=== PATIENT | female | born 2000 | race Hispanic/Latino ===

== ENCOUNTER 2019-02-05 17:28 | Emergency (ER) | payer SELFPAY | END 2019-02-05 19:08 | disposition home or self-care (01) | LOC: ERS 17:28 | DX: S80.211A Abrasion, right knee, initial encounter (principal); W25.XXXA Contact with sharp glass, initial encounter | CPT/HCPCS: 99284 ==

== ENCOUNTER 2020-01-31 09:07 | Outpatient (CLI) | payer MEDICAID, OTHER ==
--- NOTE | 2020-01-31 10:26 | ULT ---
OB ULTRASOUND: HISTORY: anatomy. FINDINGS: A single live intrauterine gestation is seen with measurements corresponding to an estimated gestatio nal age of 20 weeks 4 days and MICAH at 06/15/2020. The estimated weight measures 346 grams or 12 ounces (20% by Hadlock criteria). measurements are as follows: BPD 4.76 cm, 20 weeks 3 days HC 18.17 cm, 20 weeks 5 days AC 15.28 cm, 20 weeks 4 days FL 3.23 cm, 20 weeks 1 day heart rate measures 146 b.p.m. Placenta is posteriorly located without evidence of placenta pr evia. JENNA measures 10.7 cm. Cervical length measures 4.5 cm. A 3-vessel cord, cord insertion, kidneys, bladder, stomach, 4-chamber heart, lateral ventricles , cerebellum, spine, lips/nose, upper and lower extremities are visualized. No definite anomal ies are seen. IMPRESSION: Single live intrauterine of 20 weeks 4 days estimated gestational age and estimated date of delivery at 06/15/2020. POS: LITO
== END 2020-01-31 09:08 | disposition home or self-care (01) ==
LOC: BICULT 09:07
PROVIDERS: ATTEND Family Medicine
DX: O09.92 Supervision of high risk pregnancy, unspecified, second trimester (principal); Z3A.20 20 weeks gestation of pregnancy
CPT/HCPCS: 76805

== ENCOUNTER 2020-06-13 14:23 | Inpatient (IN) | payer MEDICAID, OTHER ==
[2020-06-13] MEDS ORDERED: Lactated Ringer's 1,000 ML IV SCH (14:50)
[2020-06-13] MEDS ORDERED: hydrALAZINE 20 MG/ML VIAL SLOW IVP PRN (14:50)
[2020-06-13] MEDS ORDERED: Ondansetron PF 4 MG/2 ML Vial IVP PRN ×3 (14:50→20:40)
[2020-06-13] MEDS ORDERED: Promethazine HCl 25 MG/ML VIAL IM PRN ×3 (14:50→20:40)
[2020-06-13] MEDS ORDERED: CEFAZOLIN 2 GM in Premix Bag 1 BAG IVPB SCH (15:00)
[2020-06-13 15:04] VITALS: BMI 33.9
[2020-06-13 15:09] LABS: Hemoglobin 10.1 g/dL (12.0-16.0); Mean Corpuscular HGB CONC 31.6 g/dL (32.0-36.0); Mean Corpuscular Hemoglobin 22.4 pg (27.0-31.0); Mean Corpuscular Volume 70.9 fL (78.0-98.0); Mean Platelet Volume 8.4 fL (7.4-10.4); Platelet Count 261 thou/uL (130-400); RBC Distribution Width 24.5 % (11.5-14.5); Red Blood Cell (RBC) Count 4.49 mill/uL (4.20-5.40); White Blood Cell (WBC) Count 7.5 thou/uL (4.8-10.8)
[2020-06-13 15:51] LABS: HBSAg Index 0.16 S/CO (0-0.99); Hep B Surf Ag Non-Reactive S/CO (NonReactive); Syphilis Antibody Nonreactive (Nonreactive); Syphilis Antibody Index 0.04 S/CO (<1.00 Non-Reactive)
[2020-06-13] MEDS ORDERED: Famotidine/PF 20 mg/2ml Vial SLOW IVP SCH (16:30)
[2020-06-13] MEDS ORDERED: Fentanyl 100 MCG/2 ML VIAL ONE (16:49)
[2020-06-13] MEDS ORDERED: EPHEDRINE 25 MG/5 ML SYRINGE ONE (16:50)
[2020-06-13] MEDS ORDERED: Ondansetron PF 4 MG/2 ML Vial ONE (16:50)
[2020-06-13] MEDS ORDERED: PHENYLEPHRINE-NS 100 MCG/ML 10 ML SYRINGE ONE (16:50)
[2020-06-13] MEDS ORDERED: Oxytocin 10 UNITS/ML VIAL ONE (16:50)
[2020-06-13] MEDS ORDERED: Ketorolac Tromethamine 30 MG/ML VIAL ONE (16:51)
[2020-06-13] MEDS ORDERED: Dexamethasone 4 mg/ml Vial ONE (16:51)
[2020-06-13] MEDS ORDERED: Promethazine HCl 25 MG SUPP PR PRN (18:13)
[2020-06-13] MEDS ORDERED: Meperidine HCl/PF 25 MG/ML VIAL SLOW IVP PRN (18:13)
[2020-06-13] MEDS ORDERED: diphenhydrAMINE 50 MG/ML VIAL IVP PRN (18:13)
[2020-06-13] MEDS ORDERED: HYDROmorphone 2 MG/ML VIAL SLOW IVP PRN (18:13)
[2020-06-13] MEDS ORDERED: Naloxone HCl 0.4 mg/ml Vial IVP PRN ×2 (18:13)
[2020-06-13] MEDS ORDERED: L&D-Morphine 4 MG/ML VIAL SLOW IVP PRN (18:13)
[2020-06-13] MEDS ORDERED: Ketorolac Tromethamine 30 MG/ML VIAL IVP PRN (18:13)
[2020-06-13] MEDS ORDERED: Ondansetron HCl/PF 4 MG/2 ML Vial IVP PRN (18:13)
[2020-06-13] MEDS ORDERED: Naloxone HCl 0.4 mg/ml Vial IV PRN (18:13)
[2020-06-13] MEDS ORDERED: Communication Order-Pharmacy FS SCH (18:15)
--- NOTE | 2020-06-13 19:58 | OP ---
DATE OF PROCEDURE: 06/13/2020 RESIDENT SURGEON: Magalie Cali MD PROCEDURE PERFORMED: Repeat low-transverse section with vacuum- assisted extraction. PREOPERATIVE DIAGNOSES: 1. Term intrauterine . 2. Previous . POSTOPERATIVE DIAGNOSES: 1. Term intrauterine , delivered. 2. Previous section. COMPLICATIONS: None. ANESTHESIA: Spinal. QUANTITATIVE BLOOD LOSS: 910 mL SPECIMENS: Cord blood obtained for cord blood analysis. FINDINGS: Grossly normal male with Apgars of 8 and 9. Placenta intact with three-vessel cord noted. DRAINS: Dewey to gravity draining clear urine. INDICATIONS FOR PROCEDURE: A 20-year-old female, G2, P1-0-0-1 at 39.5 weeks' gestation, presents to labor and delivery for a scheduled repeat section. PROCEDURE IN DETAIL: After risks, benefits, and alternatives were explained to the patient, she gave informed consent. Preoperative antibiotics included cefazolin 2 g IV. The patient was taken to the operating room, and spinal anesthesia was initiated. The patient was placed in the supine position with a left tilt; she was prepped and draped in the usual sterile fashion. A Pfannenstiel incision was made with the scalpel. The cut was carried down to the level of the fascia, which was sharply nicked. The fascial cut was extended bilaterally with Blake scissors. The superior and inferior edges of the fascia were elevated with Gabby clamps. The rectus muscles were sharply and bluntly dissected free. The rectus muscles were sharply in the midline, divided digitally, and retracted manually. The peritoneum was entered bluntly and retracted manually. A bladder blade was placed. A low-transverse uterine incision was made with a scalpel. The uterus was entered bluntly in the midline. Clear fluid was seen. The hysterotomy was extended manually. The was noted to be vertex, and there was much difficulty in performing the delivery. A vacuum was applied to the infant's head, and the infant was delivered via vacuum-assisted delivery and fundal pressure. Cord was clamped and cut. [facility] was collected. The placenta was delivered via fundal pressure and cord contraction in a spontaneous manner. The endometrium was curetted with a dry lap. The uterus was externalized. The edges of the hysterotomy were clamped. The hysterotomy was closed with #1 Monocryl suture in a running locking fashion. Following this, hemostasis was noted. The abdomen was irrigated and suctioned free of clots. There were noted to be polypoid adhesions on the posterior aspect of the uterus. Therefore, Jayne was placed in the rectouterine pouch and all along the posterior aspect of uterus. Seprafilm was applied to the anterior portion of the uterus. The uterus was internalized, and hemostasis was again noted. The rectus muscles were repaired bilaterally with 0 Vicryl suture in a running locking fashion. Peritoneum was closed in a running nonlocking fashion with a 3-0 Vicryl suture. The fascia was closed with a 0 PDS suture in a running nonlocking fashion. The subcutaneous space was irrigated. Bleeders were cauterized. Three interrupted subcutaneous sutures using 3-0 plain gut were placed. The skin was approximated with ahsan. A pressure dressing was placed. All counts were correct. The patient tolerated the procedure well and went to the postoperative area for routine recovery. Job ID: [id number] [facility] CENTERLarry
[2020-06-13] MEDS ORDERED: hydrALAZINE 20 MG/ML VIAL SLOW IVP SCH (20:40)
[2020-06-13] MEDS ORDERED: Bisacodyl 10 MG SUPP PR PRN (20:40)
[2020-06-13] MEDS ORDERED: Simethicone Chewable 80 MG TAB PO PRN (20:40)
[2020-06-13] MEDS ORDERED: Lanolin Ointment 7 GM TUBE TOP PRN (20:40)
[2020-06-13] MEDS ORDERED: diphenhydrAMINE 25 MG CAP PO PRN (20:40)
[2020-06-13] MEDS: Ferrous Sulfate 325 MG TAB PO SCH (21:42)
[2020-06-13] MEDS: Docusate Calcium (SURFAK) 240 MG CAP PO SCH (21:42)
[2020-06-14] MEDS: Ketorolac Tromethamine 30 MG/ML VIAL IVP SCH ×3 (00:07→13:49)
[2020-06-14] MEDS ORDERED: Meperidine HCl/PF 25 MG/ML VIAL IM PRN (06:15)
[2020-06-14] MEDS ORDERED: HYDROcodone/Acetaminophen 5/325 mg Tablet PO PRN (06:15)
[2020-06-14] MEDS ORDERED: Adacel (T-DAP) 0.5 ML SYRINGE IM ONE (09:00)
[2020-06-14 09:21] LABS: Hemoglobin 8.1 g/dL (12.0-16.0); Mean Corpuscular HGB CONC 31.2 g/dL (32.0-36.0); Mean Corpuscular Hemoglobin 22.4 pg (27.0-31.0); Mean Corpuscular Volume 71.9 fL (78.0-98.0); White Blood Cell (WBC) Count 11.4 thou/uL (4.8-10.8)
[2020-06-14 09:22] LABS: Platelet Count 225 thou/uL (130-400); RBC Distribution Width 23.8 % (11.5-14.5)
[2020-06-14] MEDS: Docusate Calcium (SURFAK) 240 MG CAP PO SCH ×2 (09:48→22:19)
[2020-06-14] MEDS: Prenatal Vitamin 1 TAB PO SCH (09:48)
[2020-06-14] MEDS: Ferrous Sulfate 325 MG TAB PO SCH ×2 (09:48→22:19)
[2020-06-14] MEDS ORDERED: Sodium Chloride 0.9% 10 ML ONE (09:53)
[2020-06-14] MEDS: Ibuprofen 800 MG TAB PO SCH ×2 (16:31→22:20)
[2020-06-15] MEDS: Ibuprofen 800 MG TAB PO SCH ×3 (06:17→21:11)
[2020-06-15] MEDS: Docusate Calcium (SURFAK) 240 MG CAP PO SCH ×2 (09:16→21:10)
[2020-06-15] MEDS: Ferrous Sulfate 325 MG TAB PO SCH ×2 (09:17→21:10)
[2020-06-15] MEDS: Prenatal Vitamin 1 TAB PO SCH (09:17)
[2020-06-15] MEDS: HYDROcodone/Acetaminophen 5/325 mg Tablet PO PRN (09:17)
[2020-06-16] MEDS: HYDROcodone/Acetaminophen 5/325 mg Tablet PO PRN (06:04)
[2020-06-16] MEDS: Ibuprofen 800 MG TAB PO SCH (06:04)
[2020-06-16 07:44] VITALS: BP 111/61; TEMP 98.4
[2020-06-16] MEDS: Prenatal Vitamin 1 TAB PO SCH (09:38)
[2020-06-16] MEDS: Ferrous Sulfate 325 MG TAB PO SCH (09:38)
[2020-06-16] MEDS: Docusate Calcium (SURFAK) 240 MG CAP PO SCH (09:38)
--- NOTE | 2020-06-19 01:52 | PQF ---
CLINICAL DOCUMENTATION CLARIFICATION FORM: Dear : Sameer Thomas Date / Time:06/19/20 0151 Please exercise your independent, professional judgment in responding to the clarification form. Clinical indicators are provided on the bottom of this form for your review Please check appropriate box(es): [ ] Associated Diagnosis: Acute blood loss Anemia [ ] Abnormal Laboratory findings not clinically significant [ ] Other diagnosis [ ] Unable to determine In addition, please specify: Present on Admission (POA): [ ] Yes [ ] No [ ] Unable to determine Physician Signature: Date/Time: For continuity of documentation, please document condition throughout progress notes and discharge summary. Thank You. To be completed by CDI/Coding staff for physician review: Present Clinical Indicators - Signs / Symptoms / Labs Results and Location in Medical Record [X] RBC 4.49, Hgb 10.1, hct 31.8 Laboratory 06/13 [X] RBC 3.60, Hgb 8.1, hct 25.9 Laboratory 06/14 [X] BP 120/55, Pulse 91, Resp 16, Temp 97.8 Vital signs 06/13 [X] Estimated blood loss: 910 ml Operative report 06/13 Dr Thomas Present Risk Factors Results and Location in Medical Record [X] Term IUP Operative report 06/13 Dr Thomas [X] Previous CS Operative report 06/13 Dr Thomas [X] s/p Low-transverse CS Operative report 06/13 Dr Thomas Present Treatments Results and Location in Medical Record [X] Series of hct and hgb labs Laboratory 06/13 [X] Ferrous Sulfate 325 mg oral DEC 05 [X] Lactated Ringers 1L DEC 05 CDS/Car Changer Signature: Arelis Chahal Phone #: [phone] Date/Time: 06/19/2020 0151 This is a permanent part of the Medical Record [facility]
== END 2020-06-16 12:41 | disposition home or self-care (01) | DRG 788 ==
LOC: L&D 14:23 → 3SE 20:24
PROVIDERS: ADMIT Family Medicine; ATTEND Family Medicine
PROC: 10D00Z1 Extraction of Products of Conception, Low, Open Approach (ICD-10-PCS; principal; 2020-06-13)
PROC: 3E0P05Z Introduction of Adhesion Barrier into Female Reproductive, Open Approach (ICD-10-PCS; 2020-06-13)
DX: O34.211 Maternal care for low transverse scar from previous cesarean delivery (principal); Z3A.39 39 weeks gestation of pregnancy; Z37.0 Single live birth; Z20.828 Contact with and (suspected) exposure to other viral communicable diseases
CPT/HCPCS: 36415; 51702; 85027; 86780; 86850; 86900; 86901; 87340; J1100; J1885; J2270; J2405; J2590; J3010

== ENCOUNTER 2020-06-21 15:08 | Inpatient (IN) | payer MEDICAID, OTHER ==
[2020-06-21 15:42] LABS: #Eosinphils 0.1 thou/uL (0.0-0.7); #Lymphocytes 1.9 thou/uL (1.20-3.40); #Monocytes 1.5 thou/uL (0.11-0.59); #Neutrophils 9.8 thou/uL (1.40-6.50); %Basophils 0.3 % (0.0-1.0); %Eosinophils 0.5 % (0.0-10.0); %Lymphocytes 14.3 % (21.0-51.0); %Monocytes 11.3 % (0.0-10.0); %Neutrophils 73.5 % (42.0-75.0); Hemoglobin 9.2 g/dL (12.0-16.0); Mean Corpuscular Hemoglobin 22.5 pg (27.0-31.0); Mean Corpuscular Volume 72.6 fL (78.0-98.0); Platelet Count 349 thou/uL (130-400); RBC Distribution Width 23.2 % (11.5-14.5); Red Blood Cell (RBC) Count 4.09 mill/uL (4.20-5.40); White Blood Cell (WBC) Count 13.4 thou/uL (4.8-10.8)
[2020-06-21 16:04] LABS: ALT (SGPT) 26 U/L (8-55); AST (SGOT) 12 U/L (5-34); Albumin 3.5 g/dL (3.5-5.0); Alkaline Phosphatase 148 U/L (40-110); Anion Gap 14 mmol/L (10-20); BUN (Urea Nitrogen) 9 mg/dL (7.0-18.7); Bilirubin, Total 0.8 mg/dL (0.2-1.2); Calc. Creatinine Clearance 0 mL/min (70-130); Calcium 8.9 mg/dL (7.8-10.44); Carbon Dioxide 21 mmol/L (22-29); Chloride 107 mmol/L (98-107); Estimated GFR-MDRD Greater than 90; Globulin 3.5 g/dL (2.4-3.5); Glucose 90 mg/dL (70-105); Potassium 3.6 mmol/L (3.5-5.1); Sodium 138 mmol/L (136-145)
[2020-06-21] MEDS ORDERED: Acetaminophen 500 MG TAB ONE (16:42)
[2020-06-21] MEDS ORDERED: Ketorolac Tromethamine 30 MG/ML VIAL ONE (16:42)
[2020-06-21] MEDS ORDERED: Gentamicin 80 MG/2 ML VIAL ONE ×3 (16:50→16:58)
[2020-06-21] MEDS ORDERED: Clindamycin/D5W 900 mg/50 ml Premix Bag ONE (16:50)
[2020-06-21 17:55] LABS: Bacteria/HPF None Seen HPF (None Seen); Bilirubin Negative (Negative); Blood, Urine 3+ (Negative); Clarity Clear (Clear); Glucose, Urine (Dipstick) Normal (Negative); Ketone, Urine Negative (Negative); Leukocyte 250 Leu/uL (Negative); Mucous/LPF 1+ LPF (<2+); Nitrite Negative (Negative); Protein, Urine (Dipstick) 20 mg/dL (Neg-Trace); Squamous Epithelial 0-3 HPF (0-3); Urobilinogen 3 mg/dL (Less than 2)
[2020-06-21] MEDS ORDERED: diphenhydrAMINE 50 MG/ML VIAL ONE (18:00)
[2020-06-21] MEDS ORDERED: Acetaminophen/Codeine 30-300mg Tablet PO PRN (20:58)
[2020-06-21] MEDS ORDERED: Ibuprofen 800 MG TAB PO PRN (20:58)
[2020-06-21] MEDS ORDERED: diphenhydrAMINE 50 MG/ML VIAL IVP SCH (21:00)
[2020-06-21] MEDS ORDERED: Clindamycin/D5W 900 MG in Premix Bag 1 BAG IVPB SCH (22:00)
[2020-06-21] MEDS ORDERED: Zolpidem Tartrate 5 MG TAB PO PRN (22:41)
[2020-06-22] MEDS: Clindamycin/D5W 900 MG in Premix Bag 1 BAG IVPB SCH ×3 (00:53→18:17)
--- NOTE | 2020-06-22 01:14 | HP ---
PRIMARY OB: Sameer Thomas M.D. CHIEF COMPLAINT: Fever. HISTORY OF PRESENT ILLNESS: The patient is a 20-year-old female, who is eight days status post scheduled repeat , who presented to the emergency room with 1-day history of fever, body aches, and lower abdominal pain. The patient denies any cough or other respiratory symptoms. Denies any sick contacts. She also reports that she has had increased vaginal bleeding in the last 24 hours. The patient reports fever at home and reports chills. Denies chest pain or shortness of breath. Denies edema. Denies any focal weakness. The patient did report upon my presentation, a new lesion on her forehead, some swelling, erythematous swelling, it had begun sometime after receiving antibiotics there in the emergency room. The patient reports that she is having also firmness and tenderness in her breast, she is not choosing to breastfeed, but has been bottle-feeding her baby. She denies any red streaking or extreme pointed tenderness. PAST MEDICAL HISTORY: Negative. PAST SURGICAL HISTORY: She has had a recent per HPI. SOCIAL HISTORY: Denies drug, alcohol, or tobacco use. She is not breast-feeding, but is bottle-feeding. PHYSICAL EXAMINATION: VITAL SIGNS: Blood pressure 115/72, pulse of 100, respiratory rate of 16, temperature 98.4, O2 sats of 100%. GENERAL: She appears to be in no acute distress. She is alert, oriented, cooperative, and pleasant to interact. HEAD: Normocephalic and atraumatic. LUNGS: Clear to auscultation bilaterally. HEART: Has a regular rate and rhythm. ABDOMEN: Soft. Incision is clean, dry, and intact. She does have some fundal tenderness. Does not seem to be inappropriate due to the timing of her . BREAST: She has very full breasts with milk, lots of a firm , but there is no erythema. There is no fluctuance to indicate any mastitis. : Vulva is without masses, lesions, or erythema. Vagina is moist. She does have a little bit of purulent looking material in the vagina. This seems to be coming from the cervical os. There was a very distinct odor suggestive of infection. On bimanual exam, the patient has exquisite tenderness on bimanual exam. LABORATORY STUDIES: White count 13.4 with no left shift. Hemoglobin is 9.2, hematocrit is 29.7, and platelets of 349,000. Sodium is 138, potassium is 3.6, BUN is 9, creatinine is 0.58. Lactic acid is 1. AST is 12, ALT is 26. Urine shows a pyuria of 11 to 20 white blood cells, a 7 to 10 red blood cells, 250 leukocyte esterase, and 3+ blood, no bacteria seen. ASSESSMENT AND PLAN: The patient is a 20-year-old female, postop day 8, status post a scheduled repeat with new onset fever in the last 24 hours, exquisite uterine tenderness on bimanual exam and a foul odor suggestive of infection. She does not appear to have any infection coming from her incision nor does she have any signs of mastitis. The patient has been given a 5 mix per kg loading dose and gentamicin and 900 mg of clindamycin in the ER. She seems to have had mild reaction to it with the hive on her forehead. Also of note, the patient's eyelids did appear subjectively more puffy to her when I asked her to look at herself in the mirror. The patient was given 50 mg of Benadryl, did not appear to have any worsening symptoms. Upon my re-examination when she came up to the floor, this hive is completely resolved. We will be premedicating her with her antibiotics, I am not sure if it was the gentamicin or if it was clindamycin. We will keep a close eye on her for any worsening symptoms or signs. The patient's primary OB is Dr. Sameer Thomas, who has been notified and will be assuming care tomorrow. The patient has Tylenol 3 and ibuprofen for pain control, probiotic and vitamin and regular diet. She has also been COVID tested. Job ID: [id number]
[2020-06-22] MEDS ORDERED: diphenhydrAMINE 50 MG/ML VIAL IVP SCH (08:45)
[2020-06-22] MEDS: Prenatal Vitamin 1 TAB PO SCH (09:03)
[2020-06-22] MEDS: Floranex Packet PO SCH (09:03)
[2020-06-22 12:09] LABS: SARS-CoV-2 MS2 Positive; SARS-CoV-2 N Gene Negative; SARS-CoV-2 S Gene Negative; SARS-CoV-2 by NAA Not Detected (NotDetected); SARS-CoV-2 orf1ab Negative
[2020-06-22] MEDS: diphenhydrAMINE 50 MG/ML VIAL IVP SCH ×2 (13:08→16:25)
[2020-06-22] MEDS: Gentamicin 300 MG in Sodium Chloride 0.9% 100 ML IVPB SCH (16:50)
[2020-06-22] MEDS ORDERED: HYDROcodone/Acetaminophen 5/325 mg Tablet PO PRN ×2 (17:40→17:41)
[2020-06-23] MEDS: diphenhydrAMINE 50 MG/ML VIAL IVP SCH ×4 (00:30→16:18)
[2020-06-23] MEDS: Clindamycin/D5W 900 MG in Premix Bag 1 BAG IVPB SCH ×3 (00:48→17:28)
[2020-06-23] MEDS: Prenatal Vitamin 1 TAB PO SCH (08:34)
[2020-06-23] MEDS: Floranex Packet PO SCH (08:34)
[2020-06-23 11:46] VITALS: BP 109/53; TEMP 97.7
[2020-06-23] MEDS: Gentamicin 300 MG in Sodium Chloride 0.9% 100 ML IVPB SCH (16:16)
--- NOTE | 2020-06-27 00:30 | PQF ---
CLINICAL DOCUMENTATION CLARIFICATION FORM: Dear : ___Chau Collazo MD__ Date / Time:_05/18/2020 Please exercise your independent, professional judgment in responding to the clarification form. Clinical indicators are provided on the bottom of this form for your review Please check appropriate box(es) to clarify if the following diagnosis has been ruled in our ruled out: Sepsis [ ] Ruled in diagnosis [ ] Continue to treat [ ] Resolved [x ] Ruled out diagnosis [ ] Improving [ ] Cannot rule out diagnosis [ ] Other diagnosis [ ] Unable to determine Physician Signature: Date/Time: For continuity of documentation, please document condition throughout progress notes and discharge summary. Thank You To be completed by CDI/Coding staff for physician review: Present Clinical Indicators - Signs / Symptoms / Labs Results and Location in Medical Record [x] Sepsis ED report, 06/21, Gabino Noonan DO [x] Met criteria for sepsis w/leukocytosis, tachycardia, lactic not elevated, not hypotensive, not severe sepsis ED report, 06/21, Gabino Noonan DO [x] Temp: 98.4, RR:16, Pulse: 100, WBC: 13.4 H&P, 06/22, Chau Collazo MD Present Risk Factors Results and Location in Medical Record [x] s/p scheduled repeat H&P, 06/22, Chau Collazo MD [ x ] Endometritis Progress note, 06/22, Chau Collazo MD Present Treatments Results an[place] Location in Medical Record [x] Gentamicin.IV 05/21 CDS/Emergency Response Officer Signature: Tish Mackay Phone #: [phone] Date/Time:_06/27/2020 This is a permanent part of the Medical Record [facility]
== END 2020-06-23 18:33 | disposition home or self-care (01) | DRG 776 ==
LOC: ERS 15:08 → 3SE 18:15
PROVIDERS: ADMIT Obstetrics & Gynecology; ATTEND Obstetrics & Gynecology
DX: O86.12 Endometritis following delivery (principal); Z20.828 Contact with and (suspected) exposure to other viral communicable diseases
CPT/HCPCS: 36415; 80053; 81003; 81015; 83605; 85025; 87040; 87635; 96365; 96375; J1200; J1580; J1885; J3490; U0003

== ENCOUNTER 2020-09-27 21:48 | Emergency (ER) | payer MEDICAID ==
[2020-09-27 23:01] LABS: #Basophils 0.1 thou/uL (0.0-0.2); #Eosinphils 0.2 thou/uL (0.0-0.7); #Lymphocytes 2.1 thou/uL (1.20-3.40); #Monocytes 0.7 thou/uL (0.11-0.59); #Neutrophils 5.9 thou/uL (1.40-6.50); %Basophils 0.7 % (0.0-1.0); %Eosinophils 1.7 % (0.0-10.0); %Lymphocytes 23.6 % (21.0-51.0); %Neutrophils 66.1 % (42.0-75.0); Hemoglobin 10.5 g/dL (12.0-16.0); Mean Corpuscular HGB CONC 31.9 g/dL (32.0-36.0); Mean Corpuscular Hemoglobin 22.3 pg (27.0-31.0); Mean Corpuscular Volume 69.8 fL (78.0-98.0); Mean Platelet Volume 10.6 fL (7.4-10.4); Platelet Count 261 thou/uL (130-400); RBC Distribution Width 16.8 % (11.5-14.5); Red Blood Cell (RBC) Count 4.72 mill/uL (4.20-5.40)
[2020-09-27] MEDS ORDERED: Ondansetron ODT 4 MG TAB ONE (23:06)
[2020-09-27 23:19] LABS: ALT (SGPT) 42 U/L (8-55); AST (SGOT) 30 U/L (5-34); Alkaline Phosphatase 103 U/L (40-110); Anion Gap 13 mmol/L (10-20); BUN (Urea Nitrogen) 12 mg/dL (7.0-18.7); Bilirubin, Total 0.5 mg/dL (0.2-1.2); Calc. Creatinine Clearance 0 mL/min (70-130); Carbon Dioxide 23 mmol/L (22-29); Chloride 106 mmol/L (98-107); Globulin 3.6 g/dL (2.4-3.5); Glucose 104 mg/dL (70-105); Lipase 26 U/L (8-78); Potassium 3.9 mmol/L (3.5-5.1); Protein, Total 7.6 g/dL (6.0-8.3); Sodium 138 mmol/L (136-145)
[2020-09-27] MEDS ORDERED: Ketorolac Tromethamine 30 MG/ML VIAL ONE (23:56)
[2020-09-28 00:16] LABS: Bacteria/HPF 3+ HPF (None Seen); Bilirubin Negative (Negative); Blood, Urine Trace (Negative); Clarity Turbid (Clear); Glucose, Urine (Dipstick) Normal (Negative); Ketone, Urine Negative (Negative); Leukocyte 75 Leu/uL (Negative); Mucous/LPF Rare LPF (<2+); Nitrite 1+ (Negative); Protein, Urine (Dipstick) 30 mg/dL (Neg-Trace); RBC/HPF 0-3 HPF (0-3); Specific Gravity, Urine 1.033 (1.002-1.036); Squamous Epithelial 21-50 HPF (0-3); Urobilinogen Normal mg/dL (Less than 2); pH, Urine 5.5 (5.0-9.0)
[2020-09-28 00:17] LABS: Pregnancy Test - Urine (BHCG) Negative (Negative); Pregu Control Background? CLEAR/WHITE (CLR/WHITE); Pregu Control Bar Appear? YES (CONTROL BAR); Specific Gravity 1.033 (1.002-1.036)
--- NOTE | 2020-09-28 07:40 | ULT ---
PRELIMINARY REPORT/DIRECT RADIOLOGY/EMERGENCY AFTER HOURS PROCEDURE: EXAM: US Abdomen Limited, Right Upper Quadrant. CLINICAL HISTORY: Epigastric pain, N/V, weakness TECHNIQUE: Real-time ultrasound of the right upper quadrant with image documentation. COMPARISON: None provided. FINDINGS: LIVER: Measures 14.9 cm and demonstrates fatty infiltration. GALLBLADDER: Gallbladder distention is noted with mobile cholelithiasis. No wall thickening. No peric holecystic fluid. COMMON BILE DUCT: No dilation. Measures 3.7 mm PANCREAS: Obscured by overlying bowel gas. RIGHT KIDNEY: Unremarkable. No hydronephrosis. Measures 11.7 cm IMPRESSION: Cholelithiasis with no sonographic evidence for acute cholecystitis ELECTRONICALLY SIGNED BY: Jose Remy MD Sep 28, 2020 1:28:53 AM [facility] FINAL REPORT RIGHT UPPER QUADRANT ULTRASOUND: DATE: 09/28/2020. COMPARISON: None. HISTORY: Epigastric pain with nausea/vomiting and weakness. FINDINGS: I agree with the preliminary report. The pancreas is poorly assessed secondary to bowel gas. No focal liver lesion or intrahepatic biliary dilatation. Shadowing echogenic foci within the gallbladder noted, evidence of cholelithiasis, measuring up to 1.5 cm. No gallbladder wall thickening or perichol ecystic fluid. Common bile duct measures in the 4 mm range, within normal limits. Right kidney measures 11.7 cm in craniocaudal dimension and demonstrates no stone, hydronephrosis, or mass. The mechanical test engineer reports a negative Lopez's sign. IMPRESSION: Cholelithiasis with no sonographic evidence of acute cholecystitis or biliary dilatation. Transcribed Date/Time: 09/28/2020 8:15 AM
== END 2020-09-28 02:19 | disposition home or self-care (01) ==
LOC: ERS 21:48
DX: K80.20 Calculus of gallbladder without cholecystitis without obstruction (principal); R11.2 Nausea with vomiting, unspecified
CPT/HCPCS: 36415; 76705; 80053; 81003; 81015; 81025; 83690; 85025; 96374; J1885; Q0162

== ENCOUNTER 2020-09-29 19:20 | Inpatient (IN) | payer MEDICAID, SELFPAY ==
[2020-09-29] MEDS ORDERED: Fentanyl 100 MCG/2 ML VIAL ONE (20:07)
[2020-09-29 20:12] LABS: #Basophils 0.1 thou/uL (0.0-0.2); #Eosinphils 0.1 thou/uL (0.0-0.7); #Lymphocytes 1.2 thou/uL (1.20-3.40); #Monocytes 0.5 thou/uL (0.11-0.59); #Neutrophils 4.5 thou/uL (1.40-6.50); %Basophils 1.2 % (0.0-1.0); %Monocytes 8.3 % (0.0-10.0); %Neutrophils 70.6 % (42.0-75.0); Hemoglobin 10.6 g/dL (12.0-16.0); Mean Corpuscular HGB CONC 30.7 g/dL (32.0-36.0); Mean Corpuscular Hemoglobin 21.4 pg (27.0-31.0); Mean Corpuscular Volume 69.7 fL (78.0-98.0); Mean Platelet Volume 10.9 fL (7.4-10.4); Platelet Count 275 thou/uL (130-400); RBC Distribution Width 16.6 % (11.5-14.5); Red Blood Cell (RBC) Count 4.94 mill/uL (4.20-5.40); White Blood Cell (WBC) Count 6.4 thou/uL (4.8-10.8)
[2020-09-29 20:17] LABS: BHCG - Serum Negative (NEGATIVE); Pregs Control Background? CLEAR/WHITE (CLR/WHITE); Pregs Control Bar Appear? YES (CONTROL BAR)
[2020-09-29 20:34] LABS: ALT (SGPT) 1447 U/L (8-55); AST (SGOT) 1216 U/L (5-34); Albumin 4.1 g/dL (3.5-5.0); Alkaline Phosphatase 269 U/L (40-110); Anion Gap 15 mmol/L (10-20); BUN (Urea Nitrogen) 11 mg/dL (7.0-18.7); Bilirubin, Total 2.4 mg/dL (0.2-1.2); Calc. Creatinine Clearance 0 mL/min (70-130); Calcium 9.1 mg/dL (7.8-10.44); Carbon Dioxide 25 mmol/L (22-29); Chloride 103 mmol/L (98-107); Globulin 3.8 g/dL (2.4-3.5); Glucose 94 mg/dL (70-105); Lipase 25 U/L (8-78); Potassium 3.7 mmol/L (3.5-5.1); Protein, Total 7.9 g/dL (6.0-8.3); Sodium 139 mmol/L (136-145)
--- NOTE | 2020-09-29 21:06 | ULT ---
Sonogram right upper quadrant HISTORY: Right upper quadrant pain. Abnormal liver function tests. COMPARISON: 09/28/2020. FINDINGS: Echogenic stones are again demonstrated within the dependent portion of the gallbladder lum en. Gallbladder is distended up to 8.5 cm. No significant gallbladder wall thickening or pericholecystic fluid. Patient was reportedly tender over the gallbladder fossa at the time of the ex am. Common duct is 0.6 cm. Liver unremarkable without focal mass or intrahepatic biliary dilatation. No free fluid. IMPRESSION : Cholelithiasis. Findings of acute cholecystitis include increasing gallbladder distention, now 8.5 cm , and positive sonographic Lopez sign.
[2020-09-29] MEDS ORDERED: Fentanyl 100 MCG/2 ML VIAL SLOW IVP PRN (23:24)
[2020-09-29] MEDS ORDERED: Ondansetron ODT 4 MG TAB SL PRN (23:30)
[2020-09-29] MEDS ORDERED: Ondansetron PF 4 MG/2 ML Vial IVP PRN ×2 (23:30→23:54)
[2020-09-29] MEDS ORDERED: Sodium Chloride 0.9% 1,000 ML IV SCH (23:30)
[2020-09-29] MEDS ORDERED: Ketorolac Tromethamine 30 MG/ML VIAL IVP PRN (23:54)
[2020-09-29] MEDS ORDERED: Morphine 4 MG/ML VIAL SLOW IVP PRN (23:54)
[2020-09-29] MEDS ORDERED: Dextrose 5% in Water 1,000 ML IV PRN (23:54)
[2020-09-29] MEDS ORDERED: Dextrose 50% Abboject 50 ML SYRINGE SLOW IVP PRN (23:54)
[2020-09-29] MEDS ORDERED: Promethazine HCl 25 MG/ML VIAL IM PRN (23:54)
[2020-09-29] MEDS ORDERED: Morphine 2 MG/ML VIAL SLOW IVP PRN (23:54)
[2020-09-29] MEDS ORDERED: hydrALAZINE 20 MG/ML VIAL SLOW IVP PRN (23:54)
[2020-09-29] MEDS ORDERED: Mag-Al 1200 mg/1200 mg/30 ML UDCUP PO PRN (23:54)
[2020-09-29] MEDS ORDERED: Calcium Carbonate 500 MG ChewTAB PO PRN (23:54)
[2020-09-29] MEDS ORDERED: Piperacillin/Tazobactam 4.5 GM in Sodium Chloride 0.9% 100 ML IVPB SCH (23:59)
[2020-09-30] MEDS: D5 1/2 NS w/20 mEq KCL 1,000 ML IV SCH ×4 (01:00→20:25)
[2020-09-30] MEDS: Piperacillin/Tazobactam 3.375 GM in Sodium Chloride 0.9% 100 ML IVPB SCH ×4 (01:00→18:02)
[2020-09-30 02:47] VITALS: BMI 29.2
[2020-09-30 07:51] LABS: #Basophils 0.1 thou/uL (0.0-0.2); #Eosinphils 0.1 thou/uL (0.0-0.7); #Lymphocytes 1.3 thou/uL (1.20-3.40); #Monocytes 0.4 thou/uL (0.11-0.59); #Neutrophils 2.4 thou/uL (1.40-6.50); %Basophils 1.2 % (0.0-1.0); %Lymphocytes 30.1 % (21.0-51.0); %Monocytes 10.3 % (0.0-10.0); %Neutrophils 56.4 % (42.0-75.0); Hemoglobin 10.4 g/dL (12.0-16.0); Mean Corpuscular Hemoglobin 21.9 pg (27.0-31.0); Mean Corpuscular Volume 70.8 fL (78.0-98.0); Mean Platelet Volume 10.5 fL (7.4-10.4); Platelet Count 258 thou/uL (130-400); RBC Distribution Width 17.2 % (11.5-14.5); Red Blood Cell (RBC) Count 4.72 mill/uL (4.20-5.40); White Blood Cell (WBC) Count 4.2 thou/uL (4.8-10.8)
[2020-09-30 08:10] LABS: ALT (SGPT) 1166 U/L (8-55); AST (SGOT) 704 U/L (5-34); Albumin 3.6 g/dL (3.5-5.0); Alkaline Phosphatase 253 U/L (40-110); Anion Gap 13 mmol/L (10-20); BUN (Urea Nitrogen) 7 mg/dL (7.0-18.7); Bilirubin, Total 3.1 mg/dL (0.2-1.2); Calc. Creatinine Clearance 137 mL/min (70-130); Calcium 8.2 mg/dL (7.8-10.44); Carbon Dioxide 21 mmol/L (22-29); Chloride 108 mmol/L (98-107); Globulin 3.3 g/dL (2.4-3.5); Glucose 100 mg/dL (70-105); Lipase 22 U/L (8-78); Potassium 3.7 mmol/L (3.5-5.1); Protein, Total 6.9 g/dL (6.0-8.3); Sodium 138 mmol/L (136-145)
[2020-09-30] MEDS: Famotidine/PF 20 mg/2ml Vial SLOW IVP SCH ×2 (08:49→20:29)
[2020-09-30] MEDS: Famotidine 20 MG TAB PO SCH ×2 (08:54→20:25)
[2020-09-30] MEDS ORDERED: FLU VACC QS2020-21(6MOS UP)/PF 60 MCG/0.5 ML SYRINGE IM ONE (09:00)
[2020-09-30 10:17] LABS: SARS-CoV-2 MS2 Positive; SARS-CoV-2 N Gene Negative; SARS-CoV-2 S Gene Negative; SARS-CoV-2 by NAA Not Detected (NotDetected); SARS-CoV-2 orf1ab Negative
[2020-09-30] MEDS ORDERED: Piperacillin/Tazobactam 3.375 GM VIAL ONE (11:00)
[2020-09-30] MEDS ORDERED: Sodium Chloride 0.9% 100 ML ONE (11:01)
--- NOTE | 2020-09-30 11:46 | HP ---
CHIEF COMPLAINT: Abdominal pain. HISTORY OF PRESENT ILLNESS: This is a 20-year-old female with a history of gallstones. She had presented to the emergency department here recently. Her symptoms improved and worsened last night. Pain is described as 9/10 sharp in the epigastric area, associated with nausea. No vomiting. No change in stools. Denies previous known history of jaundice or pancreatitis. She is found now to have elevated liver function test. PAST MEDICAL HISTORY: She denies. PAST SURGICAL HISTORY: . MEDICATIONS: Taken daily, none. ALLERGIES: NO KNOWN DRUG ALLERGIES. SOCIAL HISTORY: No smoking, alcohol, or other drugs. REVIEW OF SYSTEMS: Ten-system review of systems is otherwise negative unless described above. PHYSICAL EXAMINATION: HEENT: Sclerae are anicteric. Oropharynx is clear. NECK: No lymphadenopathy. CHEST: Clear. HEART: Regular rate. ABDOMEN: Soft. Tender in the epigastric area. No guarding or rebound. No abdominal hernia. EXTREMITIES: No ischemia or edema to extremities. LABORATORY DATA: Potassium is 3.7, creatinine 0.67, bilirubin is 3.1, alkaline phosphatase is 253, bilirubin is up to 3.1. LFTs are elevated. ASSESSMENT: Acute cholecystitis with choledocholithiasis. PLAN: Discussed with Dr. Atkins who is going to see her for possible ERCP. Plan would be laparoscopic cholecystectomy the day after. Job ID: [id number]
[2020-09-30] MEDS ORDERED: Iothalamate Meglumine 60% 50 ML VIAL FS ONE (11:55)
[2020-09-30] MEDS ORDERED: Indomethacin 50 MG SUPP ONE (11:57)
[2020-09-30] MEDS ORDERED: Fentanyl 100 MCG/2 ML VIAL ONE (12:11)
[2020-09-30] MEDS ORDERED: Glycopyrrolate 0.2 MG/ML 5 ML SYRINGE ONE (12:38)
[2020-09-30] MEDS ORDERED: PROPOFOL 200 MG/20 ML VIAL ONE (12:38)
[2020-09-30] MEDS ORDERED: Ondansetron PF 4 MG/2 ML Vial ONE ×2 (12:38→13:12)
[2020-09-30] MEDS ORDERED: Lidocaine 1% PF 5 ML VIAL ONE (12:38)
[2020-09-30] MEDS ORDERED: Rocuronium Bromide 10 MG/ML (10ML VIAL) ONE (12:38)
--- NOTE | 2020-09-30 12:58 | CON ---
DATE OF CONSULTATION: 09/30/2020 CHIEF COMPLAINT: Abdominal pain. HISTORY OF PRESENT ILLNESS: Ms. Garay is a 20-year-old woman, who recently presented to the emergency room on , couple of days ago with epigastric, right upper quadrant pain and was found to have gallstones by ultrasound. Her liver tests were normal at that time and she was discharged home. However, she returned to the emergency room last night again with epigastric cramping pain. The pain originally had resolved, but then came back last night. This time, she was noted to have elevated liver tests and she was admitted to the General Surgery service for initial plan for cholecystectomy. Today, her liver tests were noted to have increased, and therefore, GI was consulted to evaluate for suspected choledocholithiasis. She has had no nausea or vomiting. No diarrhea or constipation or blood in the stool. No fever. Her weight has been stable. PAST MEDICAL HISTORY: Negative. PAST SURGICAL HISTORY: . FAMILY HISTORY: Negative for GI malignancy. SOCIAL HISTORY: Social alcohol around twice per month or once per month. No smoking. No drugs. ALLERGIES: NO KNOWN DRUG ALLERGIES. MEDICATIONS: Prior to admission, none. REVIEW OF SYSTEMS: Negative x10 systems reviewed except as stated in the history of present illness. PHYSICAL EXAMINATION: VITAL SIGNS: Temperature 98.2, pulse 68, blood pressure 105/61. GENERAL: She is in no acute distress. Alert and oriented x3. HEENT: Eyes have no scleral icterus. Oropharynx is clear without lesions. No cervical or supraclavicular lymphadenopathy. LUNGS: Clear to auscultation bilaterally. HEART: Regular rate and rhythm without murmur. ABDOMEN: Soft, currently nontender. Bowel sounds are present. EXTREMITIES: No lower extremity edema. NEUROLOGIC: Cranial nerves are grossly intact. LABORATORY DATA: Creatinine 0.67. Bilirubin 3.1, up from 2.4 last night. AST 704, ALT 1166, alkaline phosphatase is 253, lipase 22. IMAGING: She had an ultrasound last night, which showed common bile duct of 6 mm and cholelithiasis. There was increase in gallbladder dilation, but no gallbladder wall thickening or pericholecystic fluid. IMPRESSION: 1. Choledocholithiasis. 2. Cholelithiasis. 3. Abnormal liver tests secondary to #1. RECOMMENDATIONS: 1. ERCP today. 2. She is on Zosyn. 3. I explained the risks and benefits of the procedure in detail to the patient and her . Job ID: [id number]
--- NOTE | 2020-09-30 13:41 | RAD ---
ERCP history: Cholecystitis. FINDINGS: Intraoperative fluoroscopy was provided for ERCP. Spot fluoroscopic images show endoscopic catheter over the right upper quadrant. There is catheterization and contrast opacification of a nondilated common duct. No filling defects are apparent. Intrahepatic ducts partially visualized without filling defect evident. Spiral area of contrast immed iately to the right of the common hepatic duct has the appearance of the cystic duct. Subtle ill-defined area of contrast overlies the gallbladder fossa and may be faint contrast within the gall bladder lumen.
--- NOTE | 2020-09-30 20:38 | OP ---
DATE OF PROCEDURE: 09/30/2020 PROCEDURE: Endoscopic retrograde cholangiopancreatography with sphincterotomy. PREOPERATIVE DIAGNOSES: Choledocholithiasis and obstructive jaundice and cholelithiasis. OPERATIVE NOTE: Informed consent was obtained from the patient. She was sedated with general anesthesia and placed in the prone position. The endoscope was advanced easily to the second portion of the duodenum where the ampulla was identified and appeared unremarkable. The common bile duct was selectively cannulated without difficulty. Cholangiogram just showed a couple of tiny filling defects in the distal common bile duct, which were more likely air bubbles. The intra and extrahepatic ducts were unremarkable. The common bile duct measured 6 mm. A complete sphincterotomy was performed. The bile duct was swept with a 9 mm balloon, which confirmed the duct to be clear. The balloon passed through the sphincterotomy easily without resistance. Again, cholangiogram confirmed the duct to be clear. The air and fluid were suctioned from the stomach, and the patient tolerated the procedure without immediate complications. IMPRESSION: 1. A 6 mm common bile duct, which appears unremarkable with normal intra and extrahepatic ducts. Her stone likely has passed spontaneously. 2. Complete sphincterotomy performed. 3. Balloon sweep of the bile duct and cholangiogram confirms the duct to be clear. The 9 mm balloon passes easily through the sphincterotomy without resistance. RECOMMENDATION: Laparoscopic cholecystectomy tomorrow. Job ID: [id number]
[2020-10-01] MEDS: Piperacillin/Tazobactam 3.375 GM in Sodium Chloride 0.9% 100 ML IVPB SCH ×3 (01:00→11:25)
[2020-10-01] MEDS ORDERED: Piperacillin/Tazobactam 3.375 GM VIAL ONE (05:39)
[2020-10-01] MEDS ORDERED: Sodium Chloride 0.9% 100 ML ONE (05:40)
[2020-10-01] MEDS ORDERED: Lidocaine 2% w/Epinephrine 1:200K 20 ML VIAL ONE (07:25)
[2020-10-01] MEDS ORDERED: Bupivacaine 0.25% HCL 30 ML VIAL ONE (07:25)
[2020-10-01] MEDS ORDERED: Fentanyl 100 MCG/2 ML VIAL ONE ×2 (08:02→09:15)
[2020-10-01] MEDS ORDERED: HYDROcodone/Acetaminophen 7.5/325 mg Tablet PO PRN (08:55)
--- NOTE | 2020-10-01 09:09 | OP ---
DATE OF PROCEDURE: 10/01/2020 PREOPERATIVE DIAGNOSIS: Acute cholecystitis. POSTOPERATIVE DIAGNOSIS: Acute cholecystitis. PROCEDURE: Laparoscopic cholecystectomy. ANESTHESIA: General. ESTIMATED BLOOD LOSS: Minimal. COMPLICATIONS: None. SPECIMEN: Gallbladder. FINDINGS: Cholecystitis. PROCEDURE IN DETAIL: The patient was taken to the operating room and laid supine on the operating room table. After general anesthetic was obtained, the abdomen was prepped and draped in a sterile fashion. A curved incision was made below the umbilicus. Cautery was used to dissect down to the umbilical fascia. Umbilical fascia was incised and held up using a Gabby. The abdominal cavity was entered using a Effie clamp. Holding stitch of Vicryl was placed on each side of the fascia. Hernandez trocar was placed. High-flow pneumoperitoneum was obtained. An upper midline 5 mm port and 2 right upper quadrant 5 mm ports were placed under direct camera visualization. The gallbladder was retracted from the gallbladder fossa. The peritoneum of the gallbladder was opened anteriorly and posteriorly. The critical view triangle was seen showing only the cystic duct and cystic artery branching from medial to lateral. There were no other branching structures. Two clips were placed proximally on the cystic duct and one laterally. It was cut using laparoscopic scissors. The cystic artery was taken in the same way. Electrocautery was then used to dissect the gallbladder out of the gallbladder fossa. The gallbladder was placed in an Endo catch bag and brought out through the Hernandez. There was no bleeding or bile in the liver bed. The cystic duct stump and cystic artery stump were intact, without evidence of extravasation or bleeding. All port sites were infiltrated using local anesthesia. All ports were removed under camera visualization. Pneumoperitoneum was let down. The Vicryl was used to close the fascial defect below the umbilicus. All incisions were irrigated and closed using 4-0 Monocryl and Dermabond. The patient was en route to Recovery in stable condition. All instrument counts, needle counts and lap counts were correct. Job ID: [id number]
[2020-10-01] MEDS ORDERED: diphenhydrAMINE 50 MG/ML VIAL ONE (09:33)
[2020-10-01] MEDS: Famotidine/PF 20 mg/2ml Vial SLOW IVP SCH (09:58)
[2020-10-01] MEDS: Famotidine 20 MG TAB PO SCH (09:58)
[2020-10-01 10:02] VITALS: BP 113/72; TEMP 97.3
[2020-10-01] MEDS: D5 1/2 NS w/20 mEq KCL 1,000 ML IV SCH (10:20)
[2020-10-01] MEDS ORDERED: Dexamethasone 20 MG/5 ML VIAL ONE (12:49)
[2020-10-01] MEDS ORDERED: Glycopyrrolate 0.2 MG/ML 5 ML SYRINGE ONE (12:49)
[2020-10-01] MEDS ORDERED: Rocuronium Bromide 10 MG/ML (10ML VIAL) ONE (12:49)
[2020-10-01] MEDS ORDERED: Ketorolac Tromethamine 30 MG/ML VIAL ONE (12:49)
[2020-10-01] MEDS ORDERED: Lidocaine 1% PF 5 ML VIAL ONE (12:49)
[2020-10-01] MEDS ORDERED: Ondansetron PF 4 MG/2 ML Vial ONE (12:49)
[2020-10-01] MEDS ORDERED: PROPOFOL 200 MG/20 ML VIAL ONE (12:49)
== END 2020-10-01 13:40 | disposition home or self-care (01) | DRG 419 ==
LOC: ERS 19:20 → OBSVTOIN 21:10 → SJJU 21:10
PROVIDERS: ADMIT Surgery; ATTEND Surgery
PROC: 0F798ZZ Dilation of Common Bile Duct, Via Natural or Artificial Opening Endoscopic (ICD-10-PCS; 2020-09-30)
PROC: 0FT44ZZ Resection of Gallbladder, Percutaneous Endoscopic Approach (ICD-10-PCS; principal; 2020-10-01)
DX: K80.63 Calculus of gallbladder and bile duct with acute cholecystitis with obstruction (principal); Z23 Encounter for immunization; Z20.822 Contact with and (suspected) exposure to COVID-19
CPT/HCPCS: 36415; 74330; 76705; 80053; 83690; 84703; 85025; 87635; 88304; 90471; 90662; 96374; G0008; G0378; J1100; J1200; J1885; J2405; J2543; J2704; J3010; J3480; J3490; S0020; S0028; U0003

== ENCOUNTER 2022-07-26 13:27 | Emergency (ER) | payer OTHER, SELFPAY ==
[2022-07-26 14:03] LABS: #Eosinphils 0.1 thou/uL (0.0-0.7); #Lymphocytes 1.1 thou/uL (1.20-3.40); #Monocytes 0.4 thou/uL (0.11-0.59); #Neutrophils 6.8 thou/uL (1.40-6.50); %Basophils 0.2 % (0.0-1.0); %Eosinophils 1.1 % (0.0-10.0); %Lymphocytes 12.8 % (21.0-51.0); %Monocytes 4.2 % (0.0-10.0); %Neutrophils 81.8 % (42.0-75.0); Hemoglobin 12.7 g/dL (12.0-16.0); Mean Corpuscular Hemoglobin 23.7 pg (27.0-31.0); Mean Corpuscular Volume 76.6 fl (78.0-98.0); Mean Platelet Volume 10.7 fL (7.4-10.4); Platelet Count 211 thou/uL (130-400); RBC Distribution Width 15.7 % (11.5-14.5); Red Blood Cell (RBC) Count 5.35 mill/uL (4.20-5.40); White Blood Cell (WBC) Count 8.3 thou/uL (4.8-10.8)
[2022-07-26 14:21] LABS: ALT (SGPT) 18 U/L (8-55); AST (SGOT) 16 U/L (5-34); Albumin 4.3 g/dL (3.5-5.0); Alkaline Phosphatase 96 U/L (40-110); Anion Gap 9 mmol/L (10-20); BUN (Urea Nitrogen) 11 mg/dL (7.0-18.7); Bilirubin, Total 1.7 mg/dL (0.2-1.2); Calc. Creatinine Clearance 0 mL/min (70-130); Calcium 9.2 mg/dL (7.8-10.44); Carbon Dioxide 25 mmol/L (22-29); Chloride 107 mmol/L (98-107); Estimated GFR 120; Globulin 3.4 g/dL (2.4-3.5); Glucose 102 mg/dL (70-105); Lipase 20 U/L (8-78); Potassium 3.8 mmol/L (3.5-5.1); Protein, Total 7.7 g/dL (6.0-8.3); Sodium 137 mmol/L (136-145)
[2022-07-26] MEDS ORDERED: Ondansetron ODT 4 MG TAB ONE (14:38)
[2022-07-26 14:43] LABS: Bilirubin Negative (Negative); Blood, Urine Negative (Negative); Clarity Clear (Clear); Glucose, Urine (Dipstick) Normal (Negative); Ketone, Urine Negative (Negative); Leukocyte Negative Leu/uL (Negative); Nitrite Negative (Negative); Protein, Urine (Dipstick) 10 mg/dL (Neg-Trace); Specific Gravity, Urine 1.032 (1.002-1.036); Urobilinogen Normal mg/dL (Less than 2); pH, Urine 5.5 (5.0-9.0)
[2022-07-26 15:00] LABS: Pregnancy Test - Urine (BHCG) Negative (Negative)
[2022-07-26 15:01] LABS: Pregu Control Background? CLEAR/WHITE (CLR/WHITE); Pregu Control Bar Appear? YES (CONTROL BAR); Specific Gravity 1.028 (1.002-1.036)
== END 2022-07-26 15:34 | disposition home or self-care (01) ==
LOC: ERS 13:27
DX: R11.2 Nausea with vomiting, unspecified (principal); R19.7 Diarrhea, unspecified; D64.9 Anemia, unspecified
CPT/HCPCS: 36415; 80053; 81003; 81025; 83690; 85025; 99284; Q0162

== ENCOUNTER 2023-11-15 19:44 | Inpatient (IN) | payer OTHER, SELFPAY ==
[2023-11-15 20:20] LABS: #Eosinphils 0.1 thou/uL (0.0-0.7); #Monocytes 0.5 thou/uL (0.11-0.59); #Neutrophils 4.3 thou/uL (1.40-6.50); %Basophils 0.2 % (0.0-1.0); %Eosinophils 1.2 % (0.0-10.0); %Lymphocytes 39.1 % (21.0-51.0); %Neutrophils 53.1 % (42.0-75.0); Hematocrit 37.4 % (36.0-47.0); Hemoglobin 12.4 g/dL (12.0-16.0); Mean Corpuscular HGB CONC 33.2 g/dL (32.0-36.0); Mean Corpuscular Hemoglobin 28.5 pg (27.0-31.0); Mean Platelet Volume 11.4 fL (7.4-10.4); Platelet Count 163 10x3/uL (130-400); RBC Distribution Width 13.4 % (11.5-14.5); Red Blood Cell (RBC) Count 4.35 mill/uL (4.20-5.40); White Blood Cell (WBC) Count 8.2 10x3/uL (4.8-10.8)
[2023-11-15] MEDS ORDERED: LORazepam 2 MG/ML SYR.(CARPUJECT) ONE (20:24)
[2023-11-15 20:42] LABS: Acetaminophen Less than 10 mcg/mL (10.0-30.0); Alcohol Less than 10.0 mg/dL (Less than 10); Salicylate Less than 8.0 mg/dL (15.0-30.0)
[2023-11-15 20:43] LABS: ALT (SGPT) 27 U/L (8-55); AST (SGOT) 19 U/L (5-34); Albumin 3.9 g/dL (3.5-5.0); Alkaline Phosphatase 85 U/L (40-110); Anion Gap 13 mmol/L (10-20); BUN (Urea Nitrogen) 10 mg/dL (7.0-18.7); Bilirubin, Total 0.8 mg/dL (0.2-1.2); CK (CPK) 60 U/L (29-168); Calc. Creatinine Clearance 0 mL/min (70-130); Calcium 8.9 mg/dL (7.8-10.44); Carbon Dioxide 20 mmol/L (22-29); Chloride 110 mmol/L (98-107); Estimated GFR 127; Globulin 3.1 g/dL (2.4-3.5); Glucose 128 mg/dL (70-105); Potassium 3.6 mmol/L (3.5-5.1); Sodium 139 mmol/L (136-145)
[2023-11-15] MEDS ORDERED: Midazolam HCl 2 mg/2 ml Vial ONE (23:04)
[2023-11-15 23:25] LABS: Acetaminophen Less than 10 mcg/mL (10.0-30.0); Alcohol Less than 10.0 mg/dL (Less than 10); Salicylate Less than 8.0 mg/dL (15.0-30.0)
[2023-11-15] MEDS ORDERED: Acetaminophen 650 MG Suppository PR PRN ×2 (23:32→23:33)
[2023-11-15] MEDS ORDERED: Electrolyte Replacement Protocol 1 EACH IVPB PRN (23:32)
[2023-11-15] MEDS ORDERED: Acetaminophen 325 MG (10.15 ML) UDCUP PO PRN (23:32)
[2023-11-15] MEDS ORDERED: Ondansetron PF 4 MG/2 ML Vial IVP PRN (23:32)
[2023-11-15] MEDS ORDERED: Acetaminophen 325 MG TAB PO PRN (23:33)
[2023-11-15] MEDS ORDERED: Ondansetron ODT 4 MG TAB PO PRN (23:33)
[2023-11-16] MEDS: Lorazepam 2 MG/ML VIAL SLOW IVP PRN (01:56)
[2023-11-16 02:59] VITALS: BMI 34.2
[2023-11-16] MEDS: Dextrose 5%-Lactated Ringers 1,000 ML IV SCH (03:22)
[2023-11-16 03:59] LABS: #Monocytes 0.6 thou/uL (0.11-0.59); #Neutrophils 10.5 thou/uL (1.40-6.50); %Basophils 0.2 % (0.0-1.0); %Eosinophils 0.1 % (0.0-10.0); %Lymphocytes 11.6 % (21.0-51.0); %Neutrophils 82.9 % (42.0-75.0); Hematocrit 35.4 % (36.0-47.0); Hemoglobin 11.8 g/dL (12.0-16.0); Mean Corpuscular HGB CONC 33.3 g/dL (32.0-36.0); Mean Corpuscular Hemoglobin 28.9 pg (27.0-31.0); Mean Corpuscular Volume 86.6 fl (78.0-98.0); Mean Platelet Volume 11.8 fL (7.4-10.4); Platelet Count 201 10x3/uL (130-400); RBC Distribution Width 13.7 % (11.5-14.5); Red Blood Cell (RBC) Count 4.09 mill/uL (4.20-5.40); White Blood Cell (WBC) Count 12.6 10x3/uL (4.8-10.8)
[2023-11-16 04:05] LABS: BHCG - Serum Negative (NEGATIVE)
[2023-11-16 04:06] LABS: Pregs Control Background? CLEAR/WHITE (CLR/WHITE); Pregs Control Bar Appear? YES (CONTROL BAR)
[2023-11-16 04:51] LABS: ALT (SGPT) 26 U/L (8-55); AST (SGOT) 19 U/L (5-34); Acetaminophen Less than 10 mcg/mL (10.0-30.0); Albumin 3.8 g/dL (3.5-5.0); Alkaline Phosphatase 83 U/L (40-110); Anion Gap 12 mmol/L (10-20); BUN (Urea Nitrogen) 7 mg/dL (7.0-18.7); Bilirubin, Total 0.7 mg/dL (0.2-1.2); Calc. Creatinine Clearance 192 mL/min (70-130); Calcium 8.8 mg/dL (7.8-10.44); Carbon Dioxide 21 mmol/L (22-29); Chloride 109 mmol/L (98-107); Estimated GFR 128; Glucose 106 mg/dL (70-105); Potassium 3.8 mmol/L (3.5-5.1); Protein, Total 6.8 g/dL (6.0-8.3); Sodium 138 mmol/L (136-145)
[2023-11-16] MEDS: Famotidine/PF 20 mg/2ml Vial SLOW IVP SCH (10:50)
[2023-11-16 12:17] LABS: Amphetamine Not Detected (NotDetected); Barbiturates Screen Not Detected (NotDetected); Benzodiazepine Screen Detected (NotDetected); Cocaine Metabolite Screen Not Detected (NotDetected); Methadone Not Detected (NotDetected); Methamphetamine Not Detected (NotDetected); Opiate Screen Not Detected (NotDetected); Oxycodone Screen Not Detected (NotDetected); Phencyclidine (PCP) Not Detected (NotDetected); THC/Cannabinoid Screen Not Detected (NotDetected); Tricyclic Screen Not Detected (NotDetected)
[2023-11-16] MEDS: Famotidine 20 MG TAB PO SCH (19:46)
[2023-11-17] MEDS: Dextrose 5 %-0.45 % NaCl 1,000 ML IV SCH (09:53)
[2023-11-17 10:36] LABS: Anion Gap 9 mmol/L (10-20); BUN (Urea Nitrogen) 9 mg/dL (7.0-18.7); Calc. Creatinine Clearance 159 mL/min (70-130); Calcium 9.3 mg/dL (7.8-10.44); Carbon Dioxide 27 mmol/L (22-29); Chloride 106 mmol/L (98-107); Estimated GFR 121; Glucose 95 mg/dL (70-105); Potassium 3.4 mmol/L (3.5-5.1); Sodium 139 mmol/L (136-145)
[2023-11-17 10:38] LABS: Hematocrit 39.1 % (36.0-47.0); Mean Corpuscular HGB CONC 33.2 g/dL (32.0-36.0); Mean Corpuscular Hemoglobin 28.6 pg (27.0-31.0); Mean Corpuscular Volume 86.1 fl (78.0-98.0); Mean Platelet Volume 11.3 fL (7.4-10.4); Platelet Count 199 10x3/uL (130-400); RBC Distribution Width 13.7 % (11.5-14.5); Red Blood Cell (RBC) Count 4.54 mill/uL (4.20-5.40); White Blood Cell (WBC) Count 8.6 10x3/uL (4.8-10.8)
[2023-11-17 11:02] LABS: ALT (SGPT) 24 U/L (8-55); AST (SGOT) 16 U/L (5-34); Albumin 3.9 g/dL (3.5-5.0); Alkaline Phosphatase 93 U/L (40-110); Anion Gap 12 mmol/L (10-20); BUN (Urea Nitrogen) 8 mg/dL (7.0-18.7); Bilirubin, Total 1.9 mg/dL (0.2-1.2); Calc. Creatinine Clearance 159 mL/min (70-130); Calcium 9.3 mg/dL (7.8-10.44); Carbon Dioxide 24 mmol/L (22-29); Chloride 107 mmol/L (98-107); Estimated GFR 121; Globulin 3.3 g/dL (2.4-3.5); Glucose 99 mg/dL (70-105); Potassium 3.5 mmol/L (3.5-5.1); Protein, Total 7.2 g/dL (6.0-8.3); Sodium 139 mmol/L (136-145)
[2023-11-17] MEDS: Potassium Chloride 40 MEQ in Sodium Chloride 0.9% 250 ML 250 ML IVPB SCH (12:41)
[2023-11-17 19:38] LABS: Potassium 3.7 mmol/L (3.5-5.1)
[2023-11-18 06:57] LABS: Anion Gap 10 mmol/L (10-20); BUN (Urea Nitrogen) 8 mg/dL (7.0-18.7); Calc. Creatinine Clearance 172 mL/min (70-130); Calcium 9.3 mg/dL (7.8-10.44); Carbon Dioxide 23 mmol/L (22-29); Chloride 106 mmol/L (98-107); Estimated GFR 125; Glucose 94 mg/dL (70-105); Potassium 3.3 mmol/L (3.5-5.1); Sodium 136 mmol/L (136-145)
[2023-11-18] MEDS: Potassium Chloride 20 MEQ TAB PO SCH (10:19)
[2023-11-19 08:53] VITALS: BP 125/78; TEMP 98.3
== END 2023-11-19 10:50 | disposition short-term general hospital (02) | DRG 917 ==
LOC: ERS 19:44 → EEVIPCON 19:44 → CCU 11-16 01:03 → T4-A 11-17 19:29
PROVIDERS: ADMIT Student in an Organized Health Care Education/Training Program; ATTEND Family Medicine
DX: T43.592A Poisoning by other antipsychotics and neuroleptics, intentional self-harm, initial encounter (principal); G93.41 Metabolic encephalopathy; F31.81 Bipolar II disorder; T43.222A Poisoning by selective serotonin reuptake inhibitors, intentional self-harm, initial encounter; T39.1X2A Poisoning by 4-Aminophenol derivatives, intentional self-harm, initial encounter; T48.3X2A Poisoning by antitussives, intentional self-harm, initial encounter; I45.81 Long QT syndrome
CPT/HCPCS: 36415; 36416; 80048; 80053; 80143; 80306; 80307; 82550; 84443; 84703; 85025; 85027; 93005; 96374; 96375; J2060; J2250; J3480; J7042; J7050; S0028